=== PATIENT | female | born 1980 | race Asian ===

== ENCOUNTER 2023-12-13 07:04 | Day surgery (SDC) | payer BC ==
[~2023-12-13] VITALS: Ht 165.1 cm; Wt 74.8 kg
[~2023-12-13 07:04] MED LIST: CEFAZOLIN SOD 2 GM in D5W 50 ML IV ONE
[2023-12-13] MEDS ORDERED: fentaNYL CITRATE/PF 100 MCG/2 ML AMP ONE (08:45)
[2023-12-13 09:02] VITALS: O2SAT 100
[2023-12-13] MEDS ORDERED: ONDANSETRON HCL 4 MG/2 ML VIAL IVP PRN ×2 (09:30)
[2023-12-13] MEDS ORDERED: HYDROcodone/ACETAMIN 5-325 MG TAB (NORCO/ VICODIN) PO PRN (09:30)
[2023-12-13] MEDS ORDERED: ACETAMINOPHEN I.V. 1000 MG 100 ML IV ONE (09:30)
[2023-12-13] MEDS ORDERED: OXYCODONE/ACETAMINOPHEN 5-325 TABLET PO PRN ×2 (09:30)
[2023-12-13] MEDS ORDERED: MORPHINE 4 MG INJ. 4 MG/ML VIAL IVP PRN (09:30)
[2023-12-13] MEDS ORDERED: METOCLOPRAMIDE HCL 10 MG/2 ML VIAL IVP PRN (09:30)
[2023-12-13] MEDS ORDERED: KETOROLAC TROMETHAMINE 30 MG VIAL IVP PRN (09:30)
[2023-12-13] MEDS ORDERED: DEXAMETHASONE SOD PHOSPHATE 4 MG/ML VIAL ONE (09:41)
[2023-12-13] MEDS ORDERED: HYDROmorphone 1 MG/ML INJ. CARTRIDGE ONE (10:03)
[2023-12-13] MEDS: HYDROmorphone 1 MG/ML INJ. CARTRIDGE IVP PRN (10:04)
[2023-12-13 14:31] VITALS: BP_SYST 132; PULSE 68; RESP 17
== END 2023-12-13 12:05 | disposition home or self-care (01) ==
LOC: SDS 07:04 → SMU 07:04 → SDS 12:05
PROVIDERS: ATTEND Specialist
DX: N92.1 Excessive and frequent menstruation with irregular cycle (principal); N85.8 Other specified noninflammatory disorders of uterus; N94.6 Dysmenorrhea, unspecified; J45.909 Unspecified asthma, uncomplicated; Z88.0 Allergy status to penicillin; Z88.2 Allergy status to sulfonamides; Z88.5 Allergy status to narcotic agent; Z91.040 Latex allergy status; Z98.890 Other specified postprocedural states; Z80.0 Family history of malignant neoplasm of digestive organs
CPT/HCPCS: 87081; 58563; 88305; J0690; J1100; J2250; J2405; J2704; J0330; J3010; J1170; J7060; J7120